=== PATIENT | female | born 1960 | race Caucasian/White ===

== ENCOUNTER → 2020-11-29 | Outpatient (CLI) | payer BC, OTHER ==
[~2020-11-29] MED LIST: ALENDRONATE SOD70 MG PO; ASPIRIN325 MG PO; CYANOCOBAL1000 MCG/1 IM; IBU800 MG PO; KEFLEX500 MG PO; LEVOTHYROXINE88 MCG PO; LEXAPRO20 MG PO; PERCOCET 5-3251 EACH PO; VITAMIN C500 M4 PO; VITAMIN D PO; WELLBUTRIN SR150 MG PO
== END ==
LOC: KOH-I 11-27 16:44
DX: S92.345A Nondisplaced fracture of fourth metatarsal bone, left foot, initial encounter for closed fracture (principal); M89.8X7 Other specified disorders of bone, ankle and foot
CPT/HCPCS: 73630

== ENCOUNTER → 2021-01-21 | Outpatient (CLI) | payer BC, OTHER | LOC: KOH-I 08:31 | DX: S92.345D Nondisplaced fracture of fourth metatarsal bone, left foot, subsequent encounter for fracture with routine healing (principal) | CPT/HCPCS: 73630 ==

== ENCOUNTER → 2021-02-21 | Outpatient (CLI) | payer BC, OTHER | LOC: KOH-I 08:28 | DX: Z47.89 Encounter for other orthopedic aftercare (principal); S92.342A Displaced fracture of fourth metatarsal bone, left foot, initial encounter for closed fracture; Z98.1 Arthrodesis status | CPT/HCPCS: 73630 ==

== ENCOUNTER → 2021-06-03 | Outpatient (CLI) | payer BC | LOC: KOH-I 08:56 | DX: S92.342A Displaced fracture of fourth metatarsal bone, left foot, initial encounter for closed fracture (principal); S92.342G Displaced fracture of fourth metatarsal bone, left foot, subsequent encounter for fracture with delayed healing; M89.9 Disorder of bone, unspecified | CPT/HCPCS: 73630 ==

== ENCOUNTER → 2021-09-03 | Outpatient (CLI) | payer BC | LOC: KOH-I 09:18 | DX: S92.352D Displaced fracture of fifth metatarsal bone, left foot, subsequent encounter for fracture with routine healing (principal); S92.342D Displaced fracture of fourth metatarsal bone, left foot, subsequent encounter for fracture with routine healing; X58.XXXD Exposure to other specified factors, subsequent encounter | CPT/HCPCS: 73630 ==